=== PATIENT | male | born 1960 | race Caucasian/White ===

== ENCOUNTER 2024-05-26 06:14 | Day surgery (SDC) | payer BC, SELFPAY ==
[2024-05-22 11:27] LABS: Hematocrit 44.1 % (39.0-52.0); Mean Corpuscular Hgb 30.4 pg (27.0-31.0); Mean Corpuscular Volume 89.3 fL (80.0-94.0); Mean Platelet Volume 10.8 fL (7.4-10.4); Platelet Count 141 10^3/uL (130-400); Red Blood Cell Count 4.94 10^6/uL (4.70-6.10); Red Cell Dist. Width 14.1 % (11.5-14.5); White Blood Cell Count 5.5 10^3/uL (4.8-10.8)
[2024-05-22 12:58] VITALS: BMI 36.6
[2024-05-26] VITALS (9 sets, daily range): BP systolic 94–111; BP diastolic 58–74; BMI 36.6
[2024-05-26] MEDS: TYLENOL 1000 MG PO (07:33)
[2024-05-26] MEDS: CELEBREX 200 MG PO (07:33)
[2024-05-26 09:52] LABS: Glucose - Point of Care 164 mg/dl (70-99)
[2024-05-26] MEDS: DILAUDID 0.25 MG IV (10:26)
--- NOTE | 2024-05-26 10:54 | SUR.PHASEI ---
patient arrived in [facility] with oral airway in place and simple mask - sats 88%. able to arouse and patient awakens - follows commands and keeps airway in place. Elevated HOB and change to 100% NRB. Sats up to 92. With time - airway out and O2 off,
sats continue to fluctuate from 85-99%. Patient has CPAP but does not use it - encouraged to use CPAP today with any rest periods and encourage to sleep with HOB elevated. Dr Blue updated on vitals and sats - okay for discharge to [facility]
== END 2024-05-26 11:35 | disposition home or self-care (01) ==
LOC: SDS 06:14
PROVIDERS: ATTENDING PHYSICIAN Specialist; FAMILY PHYSICIAN Family Medicine; OTHER PHYSICIAN Internal Medicine Cardiovascular Disease
DX: S83.231A Complex tear of medial meniscus, current injury, right knee, initial encounter (principal); S83.281A Other tear of lateral meniscus, current injury, right knee, initial encounter; M22.41 Chondromalacia patellae, right knee
CPT/HCPCS: 29881; 36415; 82962; 85027; 93005

== ENCOUNTER → 2024-10-23 10:19 | Outpatient (REF) | payer BC, SELFPAY | LOC: RCS 10:19 | PROVIDERS: ATTENDING PHYSICIAN Internal Medicine Cardiovascular Disease; FAMILY PHYSICIAN Family Medicine | DX: I25.5 Ischemic cardiomyopathy (principal); I25.2 Old myocardial infarction | CPT/HCPCS: 93307; Q9957 ==